=== PATIENT | male | born 1995 | race Two or more races ===

== ENCOUNTER 2021-05-18 14:31 | Emergency (ER) | payer SELFPAY ==
[~2021-05-18] VITALS: Ht 190.5 cm; Wt 98.4 kg
[2021-05-18 15:06] VITALS: BP 148/96
[2021-05-18] MEDS ORDERED: cefTRIAXone 1GM/50ML D5W 50 ML IV ONE ×3 (15:45→15:50)
[2021-05-18] MEDS ORDERED: KETOROLAC TROMETH 30 MG/ML 1ML VIAL IV ONE (15:45)
== END 2021-05-18 16:38 | disposition home or self-care (01) ==
LOC: ER 14:31
DX: L02.511 Cutaneous abscess of right hand (principal); F17.210 Nicotine dependence, cigarettes, uncomplicated
CPT/HCPCS: 10060; 96365; 96375; 99284; J0696; J1885